=== PATIENT | male | born 1980 | race Caucasian/White ===

== ENCOUNTER 2024-12-15 00:47 | Emergency (ER) | payer SELFPAY ==
[~2024-12-15] VITALS: Ht 182.9 cm; Wt 114.0 kg
[2024-12-15 00:57] VITALS: O2SAT 99
[2024-12-15] MEDS ORDERED: OFLO5DRO4 LEFT EAR (01:21)
[2024-12-15 01:54] VITALS: BP 144/85; PULSE 88; RESP 15; TEMP 37.1; O2SAT 97
== END 2024-12-15 01:56 | disposition home or self-care (01) ==
LOC: ER 00:47
DX: H60.8X2 Other otitis externa, left ear (principal); Z79.899 Other long term (current) drug therapy
CPT/HCPCS: 99283